=== PATIENT | male | born 1955 | race Caucasian/White ===

== ENCOUNTER 2017-03-30 09:26 | Outpatient (CLI) | payer OTHER | END 2017-03-30 09:27 | disposition home or self-care (01) | LOC: LAB.F 09:26 | PROVIDERS: ATTEND Physician Assistant Medical | DX: Z00.00 Encounter for general adult medical examination without abnormal findings (principal); Z12.5 Encounter for screening for malignant neoplasm of prostate | CPT/HCPCS: 36415; 84153 ==

== ENCOUNTER 2017-04-02 08:00 | Outpatient (CLI) | payer OTHER | END 2017-04-02 23:59 | disposition home or self-care (01) | LOC: LAB.R 08:00 | PROVIDERS: ATTEND Physician Assistant Medical | DX: Z12.11 Encounter for screening for malignant neoplasm of colon (principal) | CPT/HCPCS: 82270 ==

== ENCOUNTER 2020-03-21 16:49 | Outpatient (CLI) | payer OTHER | END 2020-03-21 16:50 | disposition home or self-care (01) | LOC: COV 16:49 | PROVIDERS: ATTEND Family Medicine | DX: Z20.828 Contact with and (suspected) exposure to other viral communicable diseases (principal) ==